=== PATIENT | male | born 1960 | race Caucasian/White ===

== ENCOUNTER 2018-10-25 19:43 | Emergency (ER) | payer MEDICAID ==
[~2018-10-25] VITALS: Ht 180.3 cm; Wt 79.4 kg
--- NOTE | 2018-10-25 20:29 | NUR ---
LILA FROM [facility] STATES PATIENT HAS BEEN HITTING HIMSELF AND ALSO NOT WALKING ANYMORE. BASELINE AOX1. ABLE TO FOLLOW SOME COMMANDS AND MUMBLES A LOT. PT HAS ECCHYMOSIS UNDER RIGHT EYE. VSS AND RR EVEN AND UNLABORED. NO ACUTE DISTRESS NOTED. REHAB STAFF MEMBER AT BEDSIDE. READY FOR EVAL.
--- NOTE | 2018-10-25 20:52 | NUR ---
PT TAKEN TO CT VIA [facility]
--- NOTE | 2018-10-25 21:20 | NUR ---
Note undone in EDM - 10/25/18 at 2231 by YOSSI LILA [facility] [employer] [facility] STATES PATIENT HAS BEEN HITTING HIMSELF AND ALSO NOT WALKING ANYMORE. BASELINE AOX1. ABLE TO FOLLOW SOME COMMANDS AND MUMBLES A LOT. PT HAS ECCHYMOSIS UNDER RIGHT EYE. VSS AND RR EVEN AND UNLABORED. NO ACUTE DISTRESS NOTED. REHAB STAFF MEMBER AT BEDSIDE. READY FOR EVAL.
[2018-10-25 21:23] LABS: BASOPHILS # (AUTO) 0.1 /CMM (0.0-0.2); BASOPHILS % (AUTO) 0.9 % (0.0-2.0); EOSINOPHILS % (AUTO) 1.3 % (0.0-6.0); HEMATOCRIT 43 % (39-51); HEMOGLOBIN 14.5 g/dL (13.5-17.5); MEAN CORPUSCULAR HGB CONC 34 g/dl (31.0-36.0); MEAN CORPUSCULAR VOLUME 91 fL (80-96); MONOCYTES # (AUTO) 0.8 /CMM (0.1-1.30); NEUTROPHILS # (AUTO) 6.9 /CMM (1.8-8.9); NEUTROPHILS % (AUTO) 69.8 % (43.0-81.0); PLATELET COUNT (AUTO) 185 /CMM (150-450); RED BLOOD CELL COUNT(AUTO) 4.73 MIL/uL (4.5-6.0)
[2018-10-25 21:34] LABS: CALCIUM, SERUM 9.4 mg/dL (8.5-10.1); CARBON DIOXIDE 29 mmol/L (21-32); CHLORIDE 104 mmol/L (98-107); CREATININE 0.9 mg/dL (0.6-1.3); GLUCOSE 106 mg/dL (74-106); POTASSIUM 3.7 mmol/L (3.5-5.1); SODIUM SERUM 140 mmol/L (136-145); UREA NITROGEN, BLOOD 22 mg/dL (7-18)
[2018-10-25 21:36] LABS: ALCOHOL, BLOOD < 3 mg/dL (0-0)
[2018-10-25 21:51] LABS: THYROID STIMULATING HORMONE 2.104 uIU/mL (0.358-3.74)
[2018-10-25] MEDS ORDERED: GUAI5SYR PO (22:25)
[2018-10-25] MEDS ORDERED: HALO100A2 IM (22:25)
[2018-10-25] MEDS ORDERED: SENN-168 PO (22:25)
[2018-10-25] MEDS ORDERED: LEVO75TA PO (22:25)
[2018-10-25] MEDS ORDERED: MIRT15TA PO (22:25)
[2018-10-25] MEDS ORDERED: DIPH50VI14 IM (22:25)
[2018-10-25] MEDS ORDERED: MIDO5TAB PO (22:25)
[2018-10-25] MEDS ORDERED: LEVE500T9 PO (22:25)
[2018-10-25] MEDS ORDERED: LAMO25TA5 PO (22:25)
[2018-10-25] MEDS ORDERED: LORA2DIS4 IM (22:25)
[2018-10-25] MEDS ORDERED: DESM0.2T23 PO (22:25)
[2018-10-25] MEDS ORDERED: MAGN1TAB13 PO (22:25)
[2018-10-25] MEDS ORDERED: ARIP10TA9 PO (22:25)
--- NOTE | 2018-10-25 22:28 | NUR ---
ART CRISIS CLINICAN SHOULD BE CALLED AFTER 0000
--- NOTE | 2018-10-25 22:31 | NUR ---
Patient is resting comfortably in bed with eyes closed. Easily aroused. VSS
[2018-10-25 23:09] LABS: APPEARANCE,URINE SL CLOUDY (CLEAR); BILIRUBIN,URINE NEGATIVE (NEGATIVE); BLOOD, URINE NEGATIVE Ery/uL (NEGATIVE); COLOR,URINE YELLOW (YELLOW); LEUKOCYTE ESTERASE ,URINE NEGATIVE (NEGATIVE); NITRITE, URINE NEGATIVE (NEGATIVE); PROTEIN,URINE 1+ mg/dl (NEGATIVE); UGLUCOSE 2+ mg/dL (NEGATIVE); UROBILINOGEN,URINE 0.2 EU/dL (0.2)
[2018-10-25 23:18] LABS: KETONES,URINE NEGATIVE (NEGATIVE)
[2018-10-25 23:20] LABS: BACTERIA,URINE None seen /HPF (None Seen); RBC,URINE 0-2 /HPF (0-2); WBC,URINE 0-2 /HPF (0-3)
[2018-10-25 23:21] LABS: MUCUS,URINE Many /LPF (None Seen); SQUAMOUS EPITHELIAL CELL,UR Rare /HPF (None Seen)
--- NOTE | 2018-10-26 02:55 | NUR ---
[facility] CALLED FOR TRANSPORT. ETA 0500. TRIP#[id number]
--- NOTE | 2018-10-26 06:52 | NUR ---
[facility] AT BEDSIDE FOR TRANSPORT TO [facility].
[2018-10-26 06:54] VITALS: BP 138/71
[2018-10-26] MEDS ORDERED: CLOZ100T32 PO (14:13)
[2018-10-26] MEDS ORDERED: BISA5TAB10 PO (14:13)
[2018-10-26] MEDS ORDERED: POLY17PO4 PO (14:13)
[2018-10-26] MEDS ORDERED: ACET-868 PO (14:13)
[2018-10-26] MEDS ORDERED: MENT1LOZ19 MM (14:13)
[2018-10-26] MEDS ORDERED: MAGN400O6 PO (14:13)
[2018-10-26] MEDS ORDERED: LOPE2CAP PO (14:13)
[2018-10-26] MEDS ORDERED: BISA10SU8 RC (14:13)
[2018-10-26] MEDS ORDERED: HALO5VIA12 IM (14:13)
== END 2018-10-26 06:55 | disposition home or self-care (01) ==
LOC: ER 19:58 → EDBD 19:58 → ER 10-26 06:55
DX: S00.83XA Contusion of other part of head, initial encounter (principal); F29 Unspecified psychosis not due to a substance or known physiological condition; R45.1 Restlessness and agitation; R56.9 Unspecified convulsions; F31.9 Bipolar disorder, unspecified; F20.9 Schizophrenia, unspecified; E03.9 Hypothyroidism, unspecified; R41.82 Altered mental status, unspecified; W22.8XXA Striking against or struck by other objects, initial encounter; Y93.89 Activity, other specified; Y92.89 Other specified places as the place of occurrence of the external cause; Y99.8 Other external cause status
CPT/HCPCS: 36415; 70450-TC; 71045-TC; 72170-TC; 80048-TC; 80305; 81000-TC; 84443-TC; 84484-TC; 85025-TC; 87081-TC; G0480

== ENCOUNTER 2018-10-26 11:47 | Inpatient (IN) | payer MEDICAID ==
[~2018-10-26] VITALS: Ht 182.9 cm; Wt 77.3 kg
[~2018-10-26 11:47] MED LIST: ARIP10TA9 PO; DESM0.2T23 PO; DIPH50VI14 IM; GUAI5SYR PO; HALO100A2 IM; LAMO25TA5 PO; LEVE500T9 PO; LEVO75TA PO; LORA2DIS4 IM; MAGN1TAB13 PO; MIDO5TAB PO; MIRT15TA PO; SENN-168 PO
[2018-10-26] MEDS ORDERED: IV NS 0.9% 1,000 ML BAG IV ONE (13:30)
[2018-10-26] MEDS ORDERED: POLY17PO4 PO (14:13)
[2018-10-26] MEDS ORDERED: HALO5VIA12 IM (14:13)
[2018-10-26] MEDS ORDERED: MENT1LOZ19 MM (14:13)
[2018-10-26] MEDS ORDERED: CLOZ100T32 PO (14:13)
[2018-10-26] MEDS ORDERED: BISA10SU8 RC (14:13)
[2018-10-26] MEDS ORDERED: BISA5TAB10 PO (14:13)
[2018-10-26] MEDS ORDERED: LOPE2CAP PO (14:13)
[2018-10-26] MEDS ORDERED: MAGN400O6 PO (14:13)
[2018-10-26] MEDS ORDERED: ACET-868 PO (14:13)
[2018-10-26] MEDS ORDERED: ACETAMINOPHEN 325 MG TABLET PO PRN (17:30)
[2018-10-26] MEDS ORDERED: GUAIFENESIN/D-METHORPHAN HB 5 ML UDC PO PRN (17:30)
[2018-10-26] MEDS: IV NS 0.9% 1,000 ML IV PRN (18:30)
[2018-10-26 20:02] VITALS: BP 142/81
[2018-10-26 20:25] VITALS: BP 142/81
[2018-10-26] MEDS: LEVETIRACETAM (250 MG) 250 MG TABLET PO SCH (20:31)
[2018-10-26] MEDS: DESMOPRESSIN ACETATE 0.1 MG TABLET PO SCH (21:21)
[2018-10-26] MEDS: CLOZAPINE 100 MG TABLET PO SCH (21:22)
[2018-10-26] MEDS ORDERED: MIRTAZAPINE 15 MG TABLET PO SCH (22:00)
[2018-10-27 08:00] VITALS: BP 126/76
[2018-10-27] MEDS: LamoTRIgine 100 MG TABLET PO SCH ×2 (09:00→17:23)
[2018-10-27] MEDS ORDERED: LamoTRIgine 25 MG TABLET PO SCH (09:00)
[2018-10-27] MEDS: SENNOSIDES 8.6 MG TABLET PO SCH ×2 (09:01→17:21)
[2018-10-27] MEDS: LEVETIRACETAM (250 MG) 250 MG TABLET PO SCH ×2 (09:01→21:21)
[2018-10-27] MEDS: ARIPIPRAZOLE 5 MG TABLET PO SCH (09:02)
[2018-10-27] MEDS: MIDODRINE HCL (5MG) 5 MG TABLET PO SCH ×3 (09:02→17:20)
[2018-10-27] MEDS: LEVOTHYROXINE SODIUM 75 MCG TABLET PO SCH (09:07)
[2018-10-27] MEDS: IV NS 0.9% 1,000 ML IV PRN (14:29)
[2018-10-27 16:00] VITALS: BP 136/86
[2018-10-27 17:12] VITALS: BP 133/80
[2018-10-27 20:00] VITALS: BP 132/71
[2018-10-27] MEDS: CLOZAPINE 100 MG TABLET PO SCH (21:21)
[2018-10-27] MEDS: DESMOPRESSIN ACETATE 0.1 MG TABLET PO SCH (21:21)
[2018-10-28] MEDS: IV NS 0.9% 1,000 ML IV PRN (00:43)
[2018-10-28] MEDS: SENNOSIDES 8.6 MG TABLET PO SCH ×2 (08:26→17:43)
[2018-10-28] MEDS: LEVOTHYROXINE SODIUM 75 MCG TABLET PO SCH (08:26)
[2018-10-28] MEDS: LamoTRIgine 100 MG TABLET PO SCH ×2 (08:27→17:43)
[2018-10-28] MEDS: LEVETIRACETAM (250 MG) 250 MG TABLET PO SCH ×2 (08:27→21:04)
[2018-10-28] MEDS: ARIPIPRAZOLE 5 MG TABLET PO SCH (08:28)
[2018-10-28] MEDS: MIDODRINE HCL (5MG) 5 MG TABLET PO SCH ×3 (09:00→17:00)
[2018-10-28 09:49] VITALS: BP 124/72
[2018-10-28 10:13] LABS: CALCIUM, SERUM 9.2 mg/dL (8.5-10.1); CREATININE 0.8 mg/dL (0.6-1.3); POTASSIUM 3.9 mmol/L (3.5-5.1)
[2018-10-28 16:34] VITALS: BP 126/75
[2018-10-28] MEDS ORDERED: GADODIAMIDE 5 MMOL/10 ML VIAL IJ ONE (16:39)
[2018-10-28] MEDS ORDERED: GADODIAMIDE 2.5 MMOL/5 ML VIAL IJ ONE (16:39)
[2018-10-28 20:26] VITALS: BP 119/75
[2018-10-28] MEDS: CLOZAPINE 100 MG TABLET PO SCH (21:15)
[2018-10-28] MEDS: DESMOPRESSIN ACETATE 0.1 MG TABLET PO SCH (21:16)
[2018-10-28] MEDS: ENOXAPARIN SODIUM 40 MG/0.4 ML DISP.SYRIN SQ SCH (21:53)
[2018-10-29] MEDS: IV NS 0.9% 1,000 ML IV PRN (07:34)
[2018-10-29 08:00] VITALS: BP 137/80
[2018-10-29] MEDS: LEVOTHYROXINE SODIUM 75 MCG TABLET PO SCH (08:30)
[2018-10-29] MEDS: SENNOSIDES 8.6 MG TABLET PO SCH ×2 (09:50→16:53)
[2018-10-29] MEDS: LEVETIRACETAM (250 MG) 250 MG TABLET PO SCH ×2 (09:50→21:17)
[2018-10-29] MEDS: LamoTRIgine 100 MG TABLET PO SCH ×2 (09:50→16:52)
[2018-10-29] MEDS: ARIPIPRAZOLE 5 MG TABLET PO SCH (09:50)
[2018-10-29] MEDS: MIDODRINE HCL (5MG) 5 MG TABLET PO SCH ×3 (09:54→16:53)
[2018-10-29 16:00] VITALS: BP 137/80
[2018-10-29 20:00] VITALS: BP 141/76
[2018-10-29 20:07] VITALS: BP 141/76
[2018-10-29] MEDS: DESMOPRESSIN ACETATE 0.1 MG TABLET PO SCH (21:17)
[2018-10-29] MEDS: CLOZAPINE 100 MG TABLET PO SCH (21:17)
[2018-10-29] MEDS: ENOXAPARIN SODIUM 40 MG/0.4 ML DISP.SYRIN SQ SCH (21:18)
[2018-10-30] MEDS: IV NS 0.9% 1,000 ML IV PRN (02:17)
[2018-10-30 08:00] VITALS: BP 122/64
[2018-10-30] MEDS: LEVETIRACETAM (250 MG) 250 MG TABLET PO SCH ×2 (08:48→20:40)
[2018-10-30] MEDS: MIDODRINE HCL (5MG) 5 MG TABLET PO SCH ×3 (08:48→17:29)
[2018-10-30] MEDS: SENNOSIDES 8.6 MG TABLET PO SCH ×2 (08:49→17:29)
[2018-10-30] MEDS: ARIPIPRAZOLE 5 MG TABLET PO SCH (08:49)
[2018-10-30] MEDS: LamoTRIgine 100 MG TABLET PO SCH ×2 (08:49→17:29)
[2018-10-30] MEDS: LEVOTHYROXINE SODIUM 75 MCG TABLET PO SCH (08:49)
[2018-10-30 16:00] VITALS: BP 106/62
[2018-10-30 20:00] VITALS: BP 136/82
[2018-10-30] MEDS: ENOXAPARIN SODIUM 40 MG/0.4 ML DISP.SYRIN SQ SCH (20:41)
[2018-10-30 20:49] VITALS: BP 136/82
[2018-10-30] MEDS: DESMOPRESSIN ACETATE 0.1 MG TABLET PO SCH (21:14)
[2018-10-30] MEDS: CLOZAPINE 100 MG TABLET PO SCH (21:14)
[2018-10-31] MEDS: IV NS 0.9% 1,000 ML IV PRN (06:55)
[2018-10-31 08:00] VITALS: BP 104/56
[2018-10-31] MEDS: LEVETIRACETAM (250 MG) 250 MG TABLET PO SCH (08:22)
[2018-10-31] MEDS: LEVOTHYROXINE SODIUM 75 MCG TABLET PO SCH (08:22)
[2018-10-31] MEDS: SENNOSIDES 8.6 MG TABLET PO SCH ×2 (08:22→16:24)
[2018-10-31] MEDS: MIDODRINE HCL (5MG) 5 MG TABLET PO SCH ×3 (08:23→17:00)
[2018-10-31] MEDS: LamoTRIgine 100 MG TABLET PO SCH ×2 (08:23→17:52)
[2018-10-31] MEDS: ARIPIPRAZOLE 5 MG TABLET PO SCH (08:23)
[2018-10-31 16:00] VITALS: BP 135/78
[2018-10-31 17:00] VITALS: BP 135/75
== END 2018-10-31 18:52 | DRG 54 ==
LOC: ER 11:49 → MEDSG2 15:31 → MED 10-27 11:59
PROVIDERS: ADMIT Internal Medicine; ATTEND Internal Medicine
DX: F07.81 Postconcussional syndrome (principal); G93.49 Other encephalopathy; F20.0 Paranoid schizophrenia; I10 Essential (primary) hypertension; E03.9 Hypothyroidism, unspecified; F03.90 Unspecified dementia, unspecified severity, without behavioral disturbance, psychotic disturbance, mood disturbance, and anxiety; Z88.0 Allergy status to penicillin; G40.909 Epilepsy, unspecified, not intractable, without status epilepticus; M81.0 Age-related osteoporosis without current pathological fracture; R79.89 Other specified abnormal findings of blood chemistry; K21.9 Gastro-esophageal reflux disease without esophagitis; Z72.0 Tobacco use; M16.0 Bilateral primary osteoarthritis of hip; Z87.828 Personal history of other (healed) physical injury and trauma
CPT/HCPCS: 36415; 70553-TC; 80048-TC; 82140-TC; 84425; 87081-TC; 95819-TC; 97110-TC; 97530-TC; A9579; G0378; J1650; J7030

== ENCOUNTER 2018-12-24 16:27 | Emergency (ER) | payer MEDICAID, OTHER ==
[~2018-12-24] VITALS: Ht 180.3 cm; Wt 60.8 kg
[~2018-12-24 16:27] MED LIST changes: +ACET-868 PO; +BISA10SU8 RC; +BISA5TAB10 PO; +CLOZ100T32 PO; -HALO100A2 IM; +HALO5VIA12 IM; +LOPE2CAP PO; +MAGN400O6 PO; +MENT1LOZ19 MM; +POLY17PO4 PO
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
--- NOTE | 2018-12-24 16:55 | NUR ---
[place] prototype special build at bedside for eval.
--- NOTE | 2018-12-24 17:08 | NUR ---
laboratory chief at bedside for blood draw.
[2018-12-24 17:15] LABS: BASOPHILS # (AUTO) 0.1 /CMM (0.0-0.2); BASOPHILS % (AUTO) 1.3 % (0.0-2.0); EOSINOPHILS % (AUTO) 1.1 % (0.0-6.0); HEMATOCRIT 41 % (39-51); HEMOGLOBIN 13.8 g/dL (13.5-17.5); LYMPHOCYTES # (AUTO) 1.8 /CMM (0.8-4.8); LYMPHOCYTES % (AUTO) 26.4 % (20.0-44.0); MEAN CORPUSCULAR HGB CONC 34 g/dl (31.0-36.0); MEAN CORPUSCULAR VOLUME 93 fL (80-96); MONOCYTES # (AUTO) 0.7 /CMM (0.1-1.30); MONOCYTES % (AUTO) 10.4 % (2.0-12.0); NEUTROPHILS % (AUTO) 60.8 % (43.0-81.0); PLATELET COUNT (AUTO) 180 /CMM (150-450); RED BLOOD CELL COUNT(AUTO) 4.47 MIL/uL (4.5-6.0); WHITE BLOOD COUNT (AUTO) 6.6 K/uL (4.3-11.0)
--- NOTE | 2018-12-24 17:20 | NUR ---
pt to radiology for head ct scan via [facility].
[2018-12-24 17:22] LABS: APPEARANCE,URINE Clear (CLEAR); BILIRUBIN,URINE Negative (NEGATIVE); BLOOD, URINE Negative Ery/uL (NEGATIVE); COLOR,URINE Yellow (YELLOW); KETONES,URINE Negative (NEGATIVE); LEUKOCYTE ESTERASE ,URINE Negative (NEGATIVE); NITRITE, URINE Negative (NEGATIVE); PROTEIN,URINE Trace mg/dl (NEGATIVE); UGLUCOSE Negative (NEGATIVE); UROBILINOGEN,URINE 0.2 EU/dL (0.2)
[2018-12-24 17:22] LABS: CALCIUM, SERUM 9.1 mg/dL (8.5-10.1); CARBON DIOXIDE 32 mmol/L (21-32); CHLORIDE 104 mmol/L (98-107); CREATININE 0.9 mg/dL (0.6-1.3); GLUCOSE 94 mg/dL (74-106); POTASSIUM 4.1 mmol/L (3.5-5.1); SODIUM SERUM 141 mmol/L (136-145); UREA NITROGEN, BLOOD 14 mg/dL (7-18)
[2018-12-24 17:28] LABS: ACETAMINOPHEN < 2 ug/ml (10-30); ALANINE AMINOTRANSFERASE 20 U/L (12-78); ALBUMIN 3.7 g/dL (3.4-5.0); ALCOHOL, BLOOD < 3 mg/dL (0-0); ALKALINE PHOSPHATASE 104 U/L (46-116); ASPARTATE AMINOTRANSFERASE 11 U/L (15-37); BILIRUBIN,DIRECT 0.1 mg/dL (0.0-0.2); BILIRUBIN,TOTAL 0.2 mg/dL (0.2-1.0); SALICYLATE < 2.8 mg/dL (2.8-20.0); TOTAL PROTEIN, SERUM 6.6 g/dL (6.4-8.2)
[2018-12-24 17:33] LABS: RBC,URINE 0-2 /HPF (0-2)
[2018-12-24 17:34] LABS: BACTERIA,URINE None seen /HPF (None Seen); CALCIUM OXALATE CRYSTALS,UR FEW /HPF (None Seen); MUCUS,URINE FEW /LPF (None Seen); SQUAMOUS EPITHELIAL CELL,UR None Seen /HPF (None Seen)
--- NOTE | 2018-12-24 19:20 | NUR ---
report to millie colindres for silvio.
[2018-12-24] MEDS ORDERED: LORAZEPAM 1 MG TABLET PO ONE (19:30)
--- NOTE | 2018-12-24 19:30 | NUR ---
PINKY AT BEDSIDE
--- NOTE | 2018-12-24 19:50 | NUR ---
[facility] transport eta 2200 trip #[id number]
[2018-12-24] MEDS ORDERED: LORAZEPAM 1 MG TABLET ONE (19:59)
--- NOTE | 2018-12-24 20:06 | NUR ---
PT REC'D ATIVAN PO ORDERED.
[2018-12-24 22:38] VITALS: BP 117/65
--- NOTE | 2018-12-24 22:50 | NUR ---
REPORT GIVEN TO [facility]
== END 2018-12-24 22:52 | disposition home or self-care (01) ==
LOC: ER 16:34
DX: F20.0 Paranoid schizophrenia (principal); S00.11XA Contusion of right eyelid and periocular area, initial encounter; R45.1 Restlessness and agitation; K21.9 Gastro-esophageal reflux disease without esophagitis; E03.9 Hypothyroidism, unspecified; D64.9 Anemia, unspecified; Z88.0 Allergy status to penicillin; Z79.899 Other long term (current) drug therapy; W22.8XXA Striking against or struck by other objects, initial encounter; Y93.89 Activity, other specified; Y92.89 Other specified places as the place of occurrence of the external cause; Y99.8 Other external cause status
CPT/HCPCS: 36415; 70450; 80048; 80076; 80305; 80307; 80329; 81001; 85025; 99284; G0480; 81000-TC